=== PATIENT | male | born 1980 | race Caucasian/White ===

== ENCOUNTER 2022-03-24 14:10 | Emergency (ER) | payer SELFPAY ==
[~2022-03-24 14:10] MED LIST: HYDR-309 PO
== END 2022-03-24 15:52 | disposition left against medical advice (07) ==
LOC: EMS 14:10
DX: Z04.3 Encounter for examination and observation following other accident (principal); Z53.21 Procedure and treatment not carried out due to patient leaving prior to being seen by health care provider